=== PATIENT | male | born 1995 | race Caucasian/White ===

== ENCOUNTER 2018-04-17 15:10 | Outpatient (CLI) | payer OTHER ==
[2018-04-17 15:43] LABS: BASOPHILS % (AUTO) 0.4 % (0.0-2.0); EOSINOPHILS # (AUTO) 0.1 K/uL (0.0-0.4); EOSINOPHILS % (AUTO) 1.8 % (0.0-4.0); HEMATOCRIT 47.9 % (36-54); HEMOGLOBIN 15.1 g/dL (14.0-18.0); LYMPHOCYTES # (AUTO) 2.3 K/uL (1.0-5.5); LYMPHOCYTES % (AUTO) 28.7 % (20.5-51.5); MEAN CORPUSCULAR HEMOGLOBIN 30 pg (27-31); MEAN CORPUSCULAR HGB CONC 32 % (32-36); MEAN CORPUSCULAR VOLUME 95 fL (79.0-98.0); MONOCYTES # (AUTO) 0.7 K/uL (0.0-1.0); MONOCYTES % (AUTO) 8.5 % (1.7-9.3); NEUTROPHILS # (AUTO) 4.9 K/uL (1.8-7.7); NEUTROPHILS % (AUTO) 60.6 % (40.0-70.0); PLATELET COUNT (AUTO) 217 K/uL (130-430); RED BLOOD CELL COUNT(AUTO) 5.03 MIL/uL (4.2-6.2); RED CELL DISTRIBUTION WIDTH 12.1 % (9.0-15.0)
[2018-04-17 16:47] LABS: ALANINE AMINOTRANSFERASE 32 U/L (12-78); ALBUMIN 4.6 g/dL (3.4-4.8); ANION GAP 8 (5-15); ASPARTATE AMINOTRANSFERASE 22 U/L (10-37); CALCIUM 9.7 mg/dL (8.4-11.0); CHLORIDE 102 mmol/L (98-107); CHOLESTEROL 111 mg/dL (<200); CREATININE 0.97 mg/dL (0.55-1.30); GLUCOSE 99 mg/dL (70-99); HDL CHOLESTEROL 38 mg/dL (>45); LDL CHOLESTEROL 75 mg/dL (<100); POTASSIUM 3.8 mmol/L (3.5-5.1); SODIUM SERUM 138 mmol/L (136-145); THYROID STIMULATING HORMONE 1.38 uIu/mL (0.34-4.82); TOTAL BILIRUBIN 0.7 mg/dL (0.0-1.0); TRIGLYCERIDES 66 mg/dL (30-150); UREA NITROGEN, BLOOD 19 mg/dL (8-21)
[2018-04-17 16:52] LABS: GFR AFRICAN AMERICAN 127 mL/min (>90)
[2018-04-17 16:53] LABS: C-REACTIVE PROTEIN QUANT < 0.2 mg/dL (0-0.5)
[2018-04-17 16:57] LABS: ERYTHROCYTE SEDIMENTATION RATE 2 MM/HR (0-15)
[2018-04-18 06:06] LABS: HEMOGLOBIN A1C 5.6 % (4.8-5.6)
[2018-04-18 08:06] LABS: RA LATEX TURBID <10.0 IU/mL (0.0-13.9)
[2018-04-19 13:14] LABS: ANTI NUCLEAR AB WITH REFLEX Negative (Negative)
== END 2018-04-17 19:59 | disposition home or self-care (01) ==
LOC: SLB 15:10
PROVIDERS: ATTEND Internal Medicine
DX: M47.896 Other spondylosis, lumbar region (principal); M47.894 Other spondylosis, thoracic region; M47.892 Other spondylosis, cervical region
CPT/HCPCS: 36415; 72040-TC; 72072-TC; 72100-TC; 80053; 80061; 82306; 82607; 83036; 84443-TC; 85025; 85651-TC; 86038; 86140; 86431

== ENCOUNTER 2018-09-01 11:17 | Emergency (ER) | payer OTHER ==
[~2018-09-01] VITALS: Ht 190.5 cm; Wt 81.6 kg
[2018-09-01 11:17] VITALS: BP_SYST 107
--- NOTE | 2018-09-01 11:17 | NUR ---
BROUGHT BACK TO BED #8 AND TRIAGED. REPORT GIVEN TO DEMARCUS
--- NOTE | 2018-09-01 11:23 | NUR ---
Patient to ER bed 08 to gown for evaluation. Side rails up.
--- NOTE | 2018-09-01 11:25 | NUR ---
PT STATES THAT HE WAS RUNNING FAST AND TRIPPED, FACE PLANTED ON CEMENT. PT HAS ROAD ABRASIONS TO CHIN, BILATERAL KNEES AND RIGHT PALM/WRIST. PT DENIES K.O OR HEAD INJURY. STATES PAIN TO RIGHT AND LEFT WRISTS, RIGHT WRIST IS WORSE. MOTHER AT BEDSIDE WITH PT.
[2018-09-01] MEDS ORDERED: HYDROcodone/ACETAMIN 5-325 MG TAB (NORCO/ VICODIN) PO ONE (11:45)
[2018-09-01 12:30] VITALS: BP_SYST 112
--- NOTE | 2018-09-01 12:39 | NUR ---
DR POTTER AT BEDSIDE DISCUSSING TEST RESULTS
--- NOTE | 2018-09-01 13:15 | NUR ---
Applied wrist brace with abducted thumb to pt's right hand. Pt tolorated well.
--- NOTE | 2018-09-01 13:30 | NUR ---
Patient given written and verbal discharge instructions and verbalizes understanding. ER MD discussed with patient the results and treatment provided. Patient in stable condition. ID arm band removed. Rx of Motrin 800 mg given. Patient educated on pain management and to follow up with PMD. Pain Scale 2/10. Opportunity for questions provided and answered. Medication side effect fact sheet provided.
== END 2018-09-01 13:30 | disposition home or self-care (01) ==
LOC: SED 11:17
DX: S66.911A Strain of unspecified muscle, fascia and tendon at wrist and hand level, right hand, initial encounter (principal); S66.912A Strain of unspecified muscle, fascia and tendon at wrist and hand level, left hand, initial encounter; W01.0XXA Fall on same level from slipping, tripping and stumbling without subsequent striking against object, initial encounter; Y93.89 Activity, other specified; Y92.89 Other specified places as the place of occurrence of the external cause; Y99.8 Other external cause status
CPT/HCPCS: 99283

== ENCOUNTER 2020-02-24 16:44 | Outpatient (CLI) | payer OTHER, SELFPAY | END 2020-02-24 20:17 | disposition home or self-care (01) | LOC: SLB 16:44 | PROVIDERS: ATTEND Specialist | DX: Z20.828 Contact with and (suspected) exposure to other viral communicable diseases (principal) | CPT/HCPCS: C9803; U0003 ==

== ENCOUNTER 2020-02-27 14:55 | Outpatient (CLI) | payer OTHER ==
[2020-02-27 16:01] LABS: BASOPHILS % (AUTO) 0.7 % (0.0-2.0); EOSINOPHILS # (AUTO) 0.1 K/uL (0.0-0.4); EOSINOPHILS % (AUTO) 1.1 % (0.0-4.0); HEMATOCRIT 48.6 % (36-54); HEMOGLOBIN 16.7 g/dL (14.0-18.0); LYMPHOCYTES # (AUTO) 1.4 K/uL (1.0-5.5); LYMPHOCYTES % (AUTO) 25.7 % (20.5-51.5); MEAN CORPUSCULAR HEMOGLOBIN 33 pg (27-31); MEAN CORPUSCULAR HGB CONC 34 % (32-36); MEAN CORPUSCULAR VOLUME 95 fL (79.0-98.0); MONOCYTES # (AUTO) 0.5 K/uL (0.0-1.0); MONOCYTES % (AUTO) 9.8 % (1.7-9.3); NEUTROPHILS # (AUTO) 3.5 K/uL (1.8-7.7); NEUTROPHILS % (AUTO) 62.7 % (40.0-70.0); PLATELET COUNT (AUTO) 183 K/uL (130-430); RED BLOOD CELL COUNT(AUTO) 5.12 MIL/uL (4.2-6.2); RED CELL DISTRIBUTION WIDTH 14.1 % (9.0-15.0); WHITE BLOOD COUNT (AUTO) 5.5 K/uL (4.8-10.8)
[2020-02-27 16:58] LABS: ERYTHROCYTE SEDIMENTATION RATE 2 MM/HR (0-15)
[2020-02-27 17:41] LABS: POTASSIUM 4.3 mmol/L (3.5-5.1)
[2020-02-27 17:42] LABS: CALCIUM 9.9 mg/dL (8.4-11.0)
[2020-02-27 17:43] LABS: CREATININE 1.2 mg/dL (0.55-1.30); TOTAL BILIRUBIN 0.9 mg/dL (0.0-1.0)
[2020-02-27 17:44] LABS: ALBUMIN 4.8 g/dL (3.4-4.8); C-REACTIVE PROTEIN QUANT 0.2 mg/dL (0-0.5)
[2020-02-27 18:05] LABS: THYROID STIMULATING HORMONE 0.54 uIu/mL (0.36-3.74)
[2020-02-29 13:09] LABS: CHLAMYDIA TRACHOMATIS NAA Negative (Negative); NEISSERIA GONORRHOEAE NAA Negative (Negative)
== END 2020-02-27 17:00 | disposition home or self-care (01) ==
LOC: SLB 14:55
PROVIDERS: ATTEND Internal Medicine
DX: A64 Unspecified sexually transmitted disease (principal)
CPT/HCPCS: 36415; 80053; 84443-TC; 85025; 85651-TC; 86140; 86592; 86695; 86696; 87491; 87591

== ENCOUNTER 2020-03-08 15:21 | Outpatient (CLI) | payer OTHER, SELFPAY | END 2020-03-08 21:08 | disposition home or self-care (01) | LOC: SLB 15:21 | PROVIDERS: ATTEND Specialist | DX: Z20.828 Contact with and (suspected) exposure to other viral communicable diseases (principal) | CPT/HCPCS: C9803; U0003 ==

== ENCOUNTER 2020-08-22 10:57 | Outpatient (CLI) | payer OTHER, SELFPAY ==
[2020-08-22 13:47] LABS: BASOPHILS % (AUTO) 0.4 % (0.0-2.0); EOSINOPHILS # (AUTO) 0.1 K/uL (0.0-0.4); EOSINOPHILS % (AUTO) 2.1 % (0.0-4.0); HEMATOCRIT 44.1 % (36-54); HEMOGLOBIN 14.9 g/dL (14.0-18.0); LYMPHOCYTES # (AUTO) 1.6 K/uL (1.0-5.5); MEAN CORPUSCULAR HEMOGLOBIN 31 pg (27-31); MEAN CORPUSCULAR HGB CONC 34 % (32-36); MEAN CORPUSCULAR VOLUME 93 fL (79.0-98.0); MONOCYTES # (AUTO) 0.5 K/uL (0.0-1.0); MONOCYTES % (AUTO) 8.4 % (1.7-9.3); NEUTROPHILS # (AUTO) 3.2 K/uL (1.8-7.7); NEUTROPHILS % (AUTO) 59.1 % (40.0-70.0); PLATELET COUNT (AUTO) 189 K/uL (130-430); RED BLOOD CELL COUNT(AUTO) 4.74 MIL/uL (4.2-6.2); RED CELL DISTRIBUTION WIDTH 12.4 % (9.0-15.0); WHITE BLOOD COUNT (AUTO) 5.4 K/uL (4.8-10.8)
[2020-08-22 14:05] LABS: BILIRUBIN,URINE NEGATIVE (NEGATIVE); BLOOD, URINE NEGATIVE (NEGATIVE); C-REACTIVE PROTEIN QUANT < 0.2 mg/dL (0-0.5); CLARITY/URINE CLEAR (CLEAR); COLOR,URINE YELLOW (YELLOW); GLUCOSE,URINE NEGATIVE (NEGATIVE); KETONES,URINE NEGATIVE (NEGATIVE); LEUKOCYTE ESTERASE ,URINE NEGATIVE (NEGATIVE); NITRITE, URINE NEGATIVE (NEGATIVE); PROTEIN URINE NEGATIVE (NEGATIVE); UROBILINOGEN,URINE 0.2 (0.2-1.0)
[2020-08-22 14:13] LABS: ALANINE AMINOTRANSFERASE 51 U/L (12-78); ALBUMIN 4.2 g/dL (3.4-4.8); ANION GAP 8 (5-15); ASPARTATE AMINOTRANSFERASE 22 U/L (10-37); CALCIUM 9.1 mg/dL (8.4-11.0); CHLORIDE 104 mmol/L (98-107); CREATININE 0.97 mg/dL (0.55-1.30); GLUCOSE 90 mg/dL (70-99); POTASSIUM 4.5 mmol/L (3.5-5.1); SODIUM SERUM 141 mmol/L (136-145); THYROID STIMULATING HORMONE 1.29 uIu/mL (0.36-3.74); TOTAL BILIRUBIN 0.5 mg/dL (0.0-1.0); UREA NITROGEN, BLOOD 8 mg/dL (8-21)
[2020-08-22 14:14] LABS: GFR AFRICAN AMERICAN 123 mL/min (>90)
[2020-08-22 14:32] LABS: ERYTHROCYTE SEDIMENTATION RATE 8 MM/HR (0-15)
[2020-08-23 08:06] LABS: RA LATEX TURBID <10.0 IU/mL (0.0-13.9)
[2020-08-23 09:06] LABS: ANTI NUCLEAR AB WITH REFLEX Negative (Negative)
== END 2020-08-22 20:54 | disposition home or self-care (01) ==
LOC: SMI 10:57
PROVIDERS: ATTEND Internal Medicine
DX: M50.222 Other cervical disc displacement at C5-C6 level (principal); M25.50 Pain in unspecified joint; R53.81 Other malaise
CPT/HCPCS: 36415; 70551; 72141; 73564; 80053; 81003; 84443-TC; 85025; 85651-TC; 86038; 86140; 86431

== ENCOUNTER 2020-10-06 11:18 | Outpatient (CLI) | payer OTHER ==
[2020-10-06 12:33] LABS: ALBUMIN 4.3 g/dL (3.4-4.8); CALCIUM 9.3 mg/dL (8.4-11.0); CREATININE 1.07 mg/dL (0.55-1.30); POTASSIUM 4.5 mmol/L (3.5-5.1); TOTAL BILIRUBIN 0.5 mg/dL (0.0-1.0)
[2020-10-06 12:41] LABS: THYROID STIMULATING HORMONE 1.34 uIu/mL (0.36-3.74)
[2020-10-07 07:06] LABS: FOLATE (FOLIC ACID) 7.4 ng/mL (>3.0)
[2020-10-07 08:06] LABS: THYROID PEROXIDASE (TPO) AB <9 IU/mL (0-34); TRIIODOTHYRONINE (T3) 132 ng/dL (71-180)
== END 2020-10-06 20:30 | disposition home or self-care (01) ==
LOC: SLB 11:18
PROVIDERS: ATTEND Psychiatry & Neurology Neurology
DX: R20.2 Paresthesia of skin (principal)
CPT/HCPCS: 36415; 80053; 82607; 82746; 84439; 84443; 84480; 85651-TC; 86376

== ENCOUNTER 2020-11-26 12:24 | Outpatient (CLI) | payer OTHER | END 2020-11-26 20:29 | disposition home or self-care (01) | LOC: SMI 12:24 | PROVIDERS: ATTEND Internal Medicine | DX: S83.241A Other tear of medial meniscus, current injury, right knee, initial encounter (principal); X58.XXXA Exposure to other specified factors, initial encounter; Y93.89 Activity, other specified; Y92.89 Other specified places as the place of occurrence of the external cause; Y99.8 Other external cause status | CPT/HCPCS: 73721 ==

== ENCOUNTER 2021-01-29 10:36 | Day surgery (SDC) | payer BC, SELFPAY ==
[2021-01-26 13:10] LABS: BILIRUBIN,URINE NEGATIVE (NEGATIVE); BLOOD, URINE NEGATIVE (NEGATIVE); CLARITY/URINE CLEAR (CLEAR); COLOR,URINE YELLOW (YELLOW); GLUCOSE,URINE NEGATIVE (NEGATIVE); KETONES,URINE NEGATIVE (NEGATIVE); LEUKOCYTE ESTERASE ,URINE NEGATIVE (NEGATIVE); NITRITE, URINE NEGATIVE (NEGATIVE); PH,URINE 5.5 (5.0-8.0); PROTEIN URINE NEGATIVE (NEGATIVE); UROBILINOGEN,URINE 0.2 (0.2-1.0)
[2021-01-26 13:29] LABS: BASOPHILS % (AUTO) 0.4 % (0.0-2.0); EOSINOPHILS # (AUTO) 0.1 K/uL (0.0-0.4); EOSINOPHILS % (AUTO) 2.7 % (0.0-4.0); HEMATOCRIT 41.7 % (36-54); HEMOGLOBIN 14.5 g/dL (14.0-18.0); LYMPHOCYTES # (AUTO) 2.1 K/uL (1.0-5.5); LYMPHOCYTES % (AUTO) 43.8 % (20.5-51.5); MEAN CORPUSCULAR HEMOGLOBIN 31 pg (27-31); MEAN CORPUSCULAR HGB CONC 35 % (32-36); MEAN CORPUSCULAR VOLUME 90 fL (79.0-98.0); MONOCYTES # (AUTO) 0.5 K/uL (0.0-1.0); MONOCYTES % (AUTO) 10.4 % (1.7-9.3); NEUTROPHILS # (AUTO) 2.1 K/uL (1.8-7.7); NEUTROPHILS % (AUTO) 42.7 % (40.0-70.0); PLATELET COUNT (AUTO) 177 K/uL (130-430); RED BLOOD CELL COUNT(AUTO) 4.64 MIL/uL (4.2-6.2); RED CELL DISTRIBUTION WIDTH 12.5 % (9.0-15.0); WHITE BLOOD COUNT (AUTO) 4.8 K/uL (4.8-10.8)
[~2021-01-29] VITALS: Ht 190.5 cm; Wt 117.9 kg
[2021-01-29] MEDS ORDERED: WATER FOR IRRIGATION,STERILE 1,000 ML IRRIG.SOLN IR ONE (12:00)
[2021-01-29] MEDS ORDERED: ONDANSETRON HCL 4 MG/2 ML VIAL IVP ONE (12:00)
[2021-01-29] MEDS ORDERED: LR 1,000 ML IV.SOLN IV ONE (12:00)
[2021-01-29] MEDS ORDERED: PROPOFOL 200MG/ 20ML VIAL (DIPRIVAN) IV ONE (12:00)
[2021-01-29] MEDS ORDERED: KETOROLAC TROMETHAMINE 30 MG VIAL IVP ONE (12:00)
[2021-01-29] MEDS ORDERED: BUPIVACAINE /EPINEPHRINE/PF 0.25% 30 ML VIAL INJ ONE (12:00)
[2021-01-29] MEDS ORDERED: MIDAZOLAM HCL 5 MG/5 ML VIAL IVP ONE (12:00)
[2021-01-29] MEDS ORDERED: fentaNYL CITRATE/PF 100 MCG/2 ML AMP IVP ONE (12:00)
[2021-01-29] MEDS ORDERED: SEVOFLURANE 15 MIN GAS INH ONE (12:00)
[2021-01-29] MEDS ORDERED: METOCLOPRAMIDE HCL 10 MG/2 ML VIAL IVP PRN (13:00)
[2021-01-29] MEDS ORDERED: HYDROmorphone 1 MG/ML INJ. CARTRIDGE IVP PRN (13:00)
[2021-01-29] MEDS ORDERED: KETOROLAC TROMETHAMINE 30 MG VIAL IVP PRN (13:00)
[2021-01-29] MEDS ORDERED: IBUPROFEN 600 MG TABLET PO ONE (13:00)
[2021-01-29 13:45] VITALS: BP_SYST 115
[2021-01-29] MEDS ORDERED: KETOROLAC TROMETHAMINE 30 MG VIAL ONE (14:08)
== END 2021-01-29 14:50 | disposition home or self-care (01) ==
LOC: SDS 10:36 → SMU 10:37 → SDS 14:50
PROVIDERS: ATTEND Orthopaedic Surgery
DX: S83.241A Other tear of medial meniscus, current injury, right knee, initial encounter (principal); M67.51 Plica syndrome, right knee; Z90.89 Acquired absence of other organs; X58.XXXA Exposure to other specified factors, initial encounter; Y93.89 Activity, other specified; Y92.89 Other specified places as the place of occurrence of the external cause; Y99.8 Other external cause status
CPT/HCPCS: 29876; 29881; 36415; 81003; 85025; 87426; J1885; J2250; J2405; J2704; J3010; J3490; J7120